=== PATIENT | female | born 1980 | race African-American/Black ===

== ENCOUNTER 2019-04-27 22:20 | Emergency (ER) | payer MEDICAID ==
[~2019-04-27] VITALS: Ht 160 cm; Wt 80.0 kg
[2019-04-27 23:17] LABS: CLARITY URINE CLEAR (CLEAR); COLOR URINE YELLOW (YELLOW); KETONES URINE NEGATIVE (NEGATIVE); LEUKOCYTE ESTERASE URINE NEGATIVE (NEGATIVE); NITRITE URINE NEGATIVE (NEGATIVE); OCCULT BLOOD URINE NEGATIVE (NEGATIVE); PROTEIN URINE NEGATIVE (NEGATIVE); SPECIFIC GRAVITY URINE 1.023 (1.005-1.030); UROBILINOGEN URINE 0.2 E.U./dL (0.2-1.0)
[2019-04-28] MEDS ORDERED: LORAZEPAM 0.5MG TABLET PO ONE (02:45)
[2019-04-28 02:54] LABS: BASOPHILS % 0.4 % (0.0-2.0); EOSINOPHILS % 1.7 % (0.0-5.0); HEMATOCRIT. 41.6 % (36.0-48.0); HEMOGLOBIN. 14.4 g/dL (12.0-16.0); MEAN CORPUSCULAR HEMOGLOBIN 31.5 pg (28.0-32.0); MEAN CORPUSCULAR VOLUME 91.3 fL (81.0-99.0); MEAN PLATELET VOLUME 10.7 fl (7.4-10.4); MONOCYTES % 4.5 % (2.0-8.0); NEUTROPHILS % 69.4 % (40.0-76.0); PLATELET 289 x1000/uL (130-400); RED BLOOD CELL COUNT 4.56 mill/uL (4.2-5.4); RED CELL DISTRIBUTION WIDTH 13.8 % (11.6-14.6)
[2019-04-28 03:02] LABS: CHLORIDE 107 mEq/L (98-107)
[2019-04-28 03:56] VITALS: BP 137/77
== END 2019-04-28 03:58 | disposition home or self-care (01) ==
LOC: ER 22:20
DX: R10.12 Left upper quadrant pain (principal); F41.9 Anxiety disorder, unspecified
CPT/HCPCS: 36415; 71045; 81003; 81025; 93005; 99284

== ENCOUNTER 2020-01-03 11:31 | Emergency (ER) | payer OTHER ==
[~2020-01-03] VITALS: Ht 172.7 cm; Wt 80.0 kg
[2020-01-03] MEDS ORDERED: KETOROLAC 30MG/ML VIAL IM ONE (12:15)
[2020-01-03 12:27] VITALS: BP 128/75
== END 2020-01-03 12:29 | disposition home or self-care (01) ==
LOC: ER 11:53
DX: H92.01 Otalgia, right ear (principal); F41.9 Anxiety disorder, unspecified; R03.0 Elevated blood-pressure reading, without diagnosis of hypertension
CPT/HCPCS: 96372; 99283; J1885

== ENCOUNTER 2020-07-27 10:49 | Emergency (ER) | payer OTHER ==
[~2020-07-27] VITALS: Ht 160 cm; Wt 75.0 kg
[2020-07-27] MEDS ORDERED: ACETAMINOPHEN 325MG TABLET PO STA (11:12)
[2020-07-27 12:00] LABS: BASOPHILS % 0.6 % (0.0-2.0); HEMATOCRIT. 41.1 % (36.0-48.0); HEMOGLOBIN. 13.9 g/dL (12.0-16.0); LYMPHOCYTES % 23.4 % (20.0-50.0); MEAN CORPUSCULAR HEMOGLOBIN 30.4 pg (28.0-32.0); MEAN CORPUSCULAR VOLUME 89.6 fL (81.0-99.0); MEAN PLATELET VOLUME 9.8 fl (7.4-10.4); MONOCYTES % 3.8 % (2.0-8.0); NEUTROPHILS % 69.2 % (40.0-76.0); PLATELET 285 x1000/uL (130-400); RED BLOOD CELL COUNT 4.58 mill/uL (4.2-5.4); RED CELL DISTRIBUTION WIDTH 13.3 % (11.6-14.6)
[2020-07-27 12:03] LABS: CHLORIDE 108 mEq/L (98-107)
[2020-07-27 12:14] LABS: HCG SCREEN NEGATIVE
[2020-07-27] MEDS ORDERED: IOHEXOL-350 100 ML BOTTLE ONE (14:00)
[2020-07-27] MEDS ORDERED: ASPIRIN 325MG EC TABLET PO ONE (15:00)
[2020-07-27 19:55] VITALS: BP 149/92
== END 2020-07-27 20:37 | disposition short-term general hospital (02) ==
LOC: ER 10:49
DX: R07.89 Other chest pain (principal)
CPT/HCPCS: 36415; 71045; 71275; 80053; 84484; 84703; 85025; 85379; 99285; Q9967; Z7610